=== PATIENT | male | born 1985 | race Caucasian/White ===

== ENCOUNTER 2017-04-04 00:44 | Emergency (ER) | payer OTHER ==
[~2017-04-04] VITALS: Ht 177.8 cm; Wt 74.8 kg
--- NOTE | 2017-04-04 01:57 | NUR ---
PT BIB SELF FROM HOME, AMBULATORY TO ER BED 3, PT C/O ABSCESS ON LEFT BUTTOCKS X 3 DAYS. PT AOX3 RR EVEN AND UNLABORED. NO SOB NOTED. NAD NOTED. NO NVD AT THIS TIME. PT GOWNED. PT NOT DIAPHORETIC. PT WAITING FOR MD CORTEZ.
[2017-04-04] MEDS ORDERED: LIDOCAINE HCL/PF 1% 30 ML SDV ONE (03:22)
--- NOTE | 2017-04-04 03:25 | NUR ---
DR. HERNANDEZ AT BEDSIDE FOR I&D
--- NOTE | 2017-04-04 03:44 | NUR ---
Patient discharged to home in stable condition. Written and verbal after care instructions given. Patient verbalizes understanding of instruction. ambulatory with a steady gait
[2017-04-04 03:46] VITALS: BP 124/82
== END 2017-04-04 03:46 | disposition home or self-care (01) ==
LOC: ER 00:46
DX: L02.31 Cutaneous abscess of buttock (principal)
CPT/HCPCS: 10060; 99283; A4606; J3490; Z7610